=== PATIENT | male | born 1960 ===

== ENCOUNTER 2017-05-05 07:43 | Day surgery (SDC) | payer MEDICAID ==
[2017-04-27 08:40] VITALS: BMI 26.3
[2017-05-05 08:11] VITALS: O2SAT 100
[2017-05-05] MEDS ORDERED: Lactated Ringer's 1,000 ML IV ONE ×3 (09:40→15:00)
[2017-05-05] MEDS ORDERED: Bupivacaine-Epi 0.25%-1:200,000 PF Inj ONE (10:03)
[2017-05-05] MEDS ORDERED: Bupivacaine HCl 0.25% PF (10 ml) Inj ONE ×2 (10:03→10:04)
[2017-05-05] MEDS ORDERED: Lidocaine 1% Inj (20ml) ONE (10:04)
[2017-05-05] MEDS ORDERED: Vancomycin 1 gm/D5W 200 ml 1 GM/200 ML BAG IVPB ONE (10:33)
[2017-05-05] MEDS ORDERED: Propofol 10 mg/ml Inj (20 ML) ONE ×2 (10:41→11:38)
[2017-05-05] MEDS ORDERED: Midazolam 2 MG/2 ML VIAL ONE (10:41)
[2017-05-05] MEDS ORDERED: Propofol 10 mg/ml 0 MG/0 ML VIAL ONE (11:56)
--- NOTE | 2017-05-05 14:12 | PCM.SURG1 ---
Surgeon's Initial Post Op Note - Surgeon's Notes Surgeon: [employer] Tester: Kofi PGY3, Bobo ALEGRE Type of Anesthesia: General Endo, Local Pre-Operative Diagnosis: R inguinal hernia. Umbilical hernia Operative Findings: R indirect/direct inguinal hernia. Umbilical hernia Post-Operative Diagnosis: same Operation Performed: robotic assited TAP R inguinal hernia repair. Robotic assisted umbilcial hernia repair Specimen/Specimens Removed: cord lipoma. hernia sac Estimated Blood Loss: EBL {In ML}: 10 Blood Products Given: N/A Drains Used: No Drains Post-Op Condition: Good Date of Surgery/Procedure: 05/05/17 Time of Surgery/Procedure: 14:12
[2017-05-05] MEDS ORDERED: HYDROmorphone 0.5 mg/0.5 ml ISec IVP PRN (14:13)
[2017-05-05 16:44] VITALS: BP 130/70; PULSE 80; RESP 18; TEMP 97
--- NOTE | 2017-05-07 15:27 | OP ---
PROCEDURE DATE: 05/05/2017 PREOPERATIVE DIAGNOSES: 1. Right inguinal hernia. 2. Umbilical hernia. POSTOPERATIVE DIAGNOSES: 1. Right indirect inguinal hernia as well as right direct inguinal hernia. 2. Right side lipoma of the cord. 3. Umbilical hernia containing preperitoneal fat. PROCEDURE: 1. Robotic right inguinal hernia repair with the mesh. 2. Robotic excisional lipoma of the cord. 3. Robotic umbilical hernia repair with the mesh. 4. Laparoscopic (TAP) transabdominal peritoneal block bilaterally, right and left side. SURGEON: Pradip Laboy MD ASSISTANTS: CODEY Kamara and Iron Benavidez, PGY-3 resident. ANESTHESIA: General endotracheal tube anesthesia. COMPLICATIONS: None. DRAINS: None. PATHOLOGY: 1. The lipoma of the cord was sent to the pathology. 2. Umbilical hernia of second content was sent to the pathology. INTRAOPERATIVE FINDINGS: The patient had a right direct as well as indirect inguinal hernia. The patient also has a large lipoma of the cord on the right side, and the patient had very small 1 x 2 cm umbilical hernia containing preperitoneal fat. DESCRIPTION OF PROCEDURE: On intraoperative steps, this is a 56-year-old male who was diagnosed with a right inguinal hernia as well as umbilical hernia, and the patient was consented for robotic right inguinal hernia repair with mesh as well as robotic umbilical hernia repair with mesh. The patient was brought to the OR, placed supine on the operating table. After induction of the anesthesia, the 5 mm incision was made in the left upper quadrant using the Visiport technique. Using the Visiport technique, Peritoneal cavity was entered. Pneumo was created. Another three 8 mm robotic port was placed. Robot was brought in and camera arm as well as arm 1 and arm 2 were docked and through the console. Peritoneal dissection was done from the midline up to the right ASIS and the dissection was carried down medially to space of Retzius to the lateral abdominal wall and peritoneal reflection was identified. The vas deferens and spermatic cord vessels was . The patient found to have a large sac and the dissection was carried down to reduce the whole large sac, and the patient also had a large lipoma of the cord that was also resected and it was sent off the table for the pathology. Now the inferior dissection was done for the peritoneal reflection, vas deference and spermatic cord vessel was completely dissected. The mesh was implanted. After proper implantation of the mesh, the peritoneum was sutured with 3-0 Vicryl continuous suture, and now the umbilical hernial sac was reduced and the content was sent off the table for the pathology. Then, the 6 cm circular mesh was implanted and mesh was tacked with tacker laparoscopically, and now the laparoscopic bilateral TAP block was given in upper and lower abdomen using the Marcaine, first on the right side and then the left side. Total 40 mL Marcaine was used and after that all the ports were taken out under vision. Pneumo was deflated. All the port site was closed in 2 layers with 2-0 Vicryl and then 4-0 Monocryl and dry sterile dressing was applied. The patient tolerated the procedure well. Count of instrument and gauze was correct. There was no apparent complication. The patient was extubated in OR, sent to the postanesthesia care unit in stable condition. Pradip Laboy MD MTDD
== END 2017-05-05 16:49 | disposition home or self-care (01) ==
LOC: C.SDS 07:43
PROVIDERS: ATTEND Surgery Surgical Critical Care
DX: K40.90 Unilateral inguinal hernia, without obstruction or gangrene, not specified as recurrent (principal); K42.9 Umbilical hernia without obstruction or gangrene; D17.6 Benign lipomatous neoplasm of spermatic cord
CPT/HCPCS: 49650; 49652; 55559; 88302; J2250; J2704; J3010; J3370; J7120